=== PATIENT | female | born 1960 | race Caucasian/White ===

== ENCOUNTER → 2017-04-19 08:20 | Outpatient (CLI) | payer BC ==
--- NOTE | 2017-04-21 09:10 | EMG ---
PATIENT:ZAID BECKHAM DATE OF SERVICE: 04/19/17 MEDICAL RECORD: [id number] DATE OF : 64 LOCATION: [facility] ADMISSION DATE: REFERRING PHYSICIAN: EASTON BAUER MD INTERPRETING PHYSICIAN: EASTON BAUER MD DATE OF SERVICE: 04/19/[address] Easton Bauer as an outpatient. ELECTROMYOGRAPHIC DATA: Electromyographic examination is limited to both upper extremities and is limited to the nerve conduction studies only as the patient is being evaluated for carpal tunnel syndrome that has been present for less than 1 month. In the right upper extremity, right median motor stimulation elicits a compound motor action potential with a distal latency of 4.4 milliseconds, peak amplitude of 1 millivolt and calculated conduction velocity of 43 meters per second. Right ulnar motor stimulation elicits a compound motor action potential with a distal latency of 3.9 milliseconds, peak amplitude of 9 millivolts, and calculated conduction velocity of 58 meters per second. Right ulnar motor stimulation across the elbow fails to elicit evidence of conduction block at this level. Antidromic right median sensory stimulation elicits a response with a distal latency of 6.0 milliseconds, amplitude of 2 microvolts and calculated conduction velocity of 52 meters per second. Antidromic right ulnar sensory stimulation elicits a response with a distal latency of 4 milliseconds, amplitude of 8 microvolts and calculated conduction velocity of 47 meters per second. The right median F wave has a latency of 21 milliseconds. In the left upper extremity, left median motor stimulation elicits a compound motor action potential with a distal latency of 3.0 milliseconds, peak amplitude of 11 millivolts and calculated conduction velocity of 57 meters per second. Left ulnar motor stimulation elicits a compound motor action potential with a distal latency of 3.0 milliseconds, peak amplitude of 9 millivolts, and calculated conduction velocity of 67 meters per second. Left ulnar motor stimulation across the elbow fails to elicit evidence of conduction block at this level. Antidromic left median sensory stimulation elicits a response with a distal latency of 3.5 milliseconds, amplitude of 14 microvolts and calculated conduction velocity of 51 meters per second. Antidromic left ulnar sensory stimulation elicits a response with a distal latency of 3.6 milliseconds, amplitude of 16 microvolts and calculated conduction velocity of 53 meters per second. The left median F wave has a latency of 24 milliseconds. Needle electrode examination is not performed at this time as the patient's neurologic symptoms have been present for less than one month. INTERPRETATION: Electromyographic examination of both upper extremities, limited to the nerve conduction studies only, is indicative of median neuropathy, at or distal to the wrist on the right, moderately severe in degree electrically on the right, consistent with the diagnosis of right carpal tunnel syndrome. The remaining nerve conduction studies are normal. TRANSINT:[id number] Voice Confirmation ID: [id number] DOCUMENT ID: [id number] ELECTROMYGRAM/NERVE CONDUCTION [id number] ZAID BECKHAM, EASTON Monten[place] MD at 0910 CC: [id number] DICTATION DATE: 04/20/17 0656 LABOR OPERATOR: 04/20/17 0906 DEP CLI 04/19/17 [facility] [address] [place] [address]
== END | disposition home or self-care (01) ==
LOC: D.CN 08:20
DX: G56.01 Carpal tunnel syndrome, right upper limb (principal)